=== PATIENT | male | born 1955 | race Caucasian/White ===

== ENCOUNTER 2016-08-30 12:23 | Emergency (ER) | payer OTHER ==
[2016-08-30 12:29] VITALS: BP 154/95; PULSE 88; TEMP 98.3; BMI 31.5
--- NOTE | 2016-08-30 12:48 | PDOC ---
History of Present Illness - General Chief Complaint: Pain, Acute Stated Complaint: neck pain Time Seen by Provider: 08/30/16 12:24 History Source: Patient Exam Limitations: No Limitations - History of Present Illness Initial Comments: 08/30/16 12:43 CHIEF COMPLAINT: Neck pain radiating to the left shoulder for 2 weeks HISTORY OF PRESENT ILLNESS: 61-year-old man presents complaining of ongoing left neck pain for 2 weeks. He was helping a friend and was lifting and reaching with his left arm when he developed recurrent left neck pain. He saw his primary physician who gave him Percocet. He has been taking Percocet and Advil without relief. He comes in today for reevaluation of ongoing neck pain. The pain is on the left side of the posterior neck and radiates to the left trapezius region. There are no symptoms in the arm. There is no numbness or weakness. There is no fever. There is no major trauma, but there was lifting and reaching when the pain started. REVIEW OF SYSTEMS: Fever or chills No falls No head trauma Past History - Past Medical History Allergies/Adverse Reactions: Allergies Allergy/AdvReac Type Severity Reaction Status Date / Time Penicillins Allergy Verified 08/30/16 12:24 Home Medications: Ambulatory Orders Oxycodone HCl/Acetaminophen [Percocet 5-325 mg Tablet] 1 - 2 tab PO Q6H PRN #20 tab 08/28/13 Aspirin [ASA -] 81 mg PO DAILY 08/30/16 Atorvastatin Ca [Lipitor] 10 mg PO HS 08/30/16 Glipizide [Glipizide ER] 10 mg PO DAILY 08/30/16 Nabumetone 500 mg PO TID PRN #30 tablet 08/30/16 Sertraline HCl [Zoloft] 10 mg PO DAILY 08/30/16 Diabetes: Yes HTN: Yes Hypercholesterolemia: Yes Psychiatric Problems: Yes (DEPRESSION) - Immunization History Td Vaccination: Yes TDAP Vaccination: No Immunization Up to Date: Yes - Psycho/Social/Smoking Cessation Hx Anxiety: No Suicidal Ideation: No Smoking Status: No Smoking History: Never smoked Number of Cigarettes Smoked Daily: 0 Hx Alcohol Use: No Drug/Substance Use Hx: No Substance Use Type: None *Physical Exam - Vital Signs Last Vital Signs Temp Pulse Resp BP Pulse Ox 98.3 F 88 18 154/95 100 08/30/16 12:24 08/30/16 12:24 08/30/16 12:24 08/30/16 12:24 08/30/16 12:24 - Physical Exam Comments: 08/30/16 13:19 GENERAL: The patient is awake, alert, and fully oriented, in no acute distress. He states there is pain in the left side of his neck. He has increased pain when turning his head. HEAD: Normal with no signs of trauma. EYES: Pupils equal, round and reactive to light, extraocular movements intact, sclera anicteric, conjunctiva clear. NECK: There is no point bony tenderness over the cervical spine. There is left paracervical tenderness in the trapezius muscle radiating to the shoulder. There is no erythema. There is no swelling. Positive increased pain in the neck with rotation, left greater than right. EXTREMITIES: Positive increased pain with raising the arms above the head, no lower extremity edema. NEUROLOGICAL: Normal speech, normal gait. Sensation and strength in the arms is normal. PSYCH: Normal mood, normal affect. SKIN: Warm, Dry, normal turgor, no rashes or lesions noted. ED Treatment Course - RADIOLOGY Radiology Studies Ordered: Category Date Time Status SPINE-CERVICAL [RAD] Stat Radiology 08/30/16 12:42 Ordered Medical Decision Making - Medical Decision Making 08/30/16 13:22 61-year-old man with persistent left neck pain, worse with movement, no fever, no trauma. Pain is consistent with musculoskeletal/arthritic cervical spine pain. Patient took 2 Percocets and to Advil at home prior to coming in, states he is feeling somewhat better. Cervical spine x-rays including obliques were performed. On my preliminary review there is cervical disc disease, particularly at the C5-6 level. There is also osteophyte formation. Impression: Neck pain secondary to cervical osteoarthritis and disc disease. No neurological deficits. Patient will receive pain management, continue his Percocet and nonsteroidals. He is advised to follow-up with orthopedics for further evaluation. *DC/Admit/Observation/Transfer Diagnosis at time of Disposition: Cervical arthritis - Discharge Dispostion Disposition: HOME Condition at time of disposition: Stable Admit: No - Prescriptions Prescriptions: Nabumetone 500 mg PO TID PRN #30 tablet PRN Reason: neck pain - Referrals Referrals: Benny Morin MD [Staff Physician] - 3 days - Patient Instructions Printed Discharge Instructions: DI for Neck Sprain Additional Instructions: You were evaluated today for neck pain. The x-ray shows some arthritic changes and some disc narrowing. Take nabumetone 500 mg 3 times a day with food as needed for pain. Continue to gently exercise her neck to prevent stiffness. Follow-up with Dr. Benny Morin in the orthopedic office for further evaluation next week. Return to the emergency department for any severe or progressive symptoms.
== END 2016-08-30 13:35 | disposition home or self-care (01) ==
LOC: FER 12:23
DX: M13.88 Other specified arthritis, other site (principal); E11.9 Type 2 diabetes mellitus without complications; I10 Essential (primary) hypertension; E78.00 Pure hypercholesterolemia, unspecified; F32.9 Major depressive disorder, single episode, unspecified
CPT/HCPCS: 72050-TC; 99282-25